=== PATIENT | female | born 1940 | race Two or more races ===

== ENCOUNTER 2019-07-20 14:13 | Outpatient (CLI) | payer OTHER ==
[~2019-07-20 14:13] MED LIST: CALTRATE 600+D1 EAC1; CITALOPRAM HBR10 MG PO; CLONAZEPAM0.5 MG; COZAAR25 MG; SYNTHROID50 MCG PO; TOPROL XL25 M1
== END 2019-07-20 14:28 | disposition home or self-care (01) ==
LOC: RAD 14:13
DX: M17.12 Unilateral primary osteoarthritis, left knee (principal)

== ENCOUNTER 2020-09-04 14:53 | Outpatient (CLI) | payer OTHER | END 2020-09-04 15:59 | disposition home or self-care (01) | LOC: OFIC 805 14:53 | PROVIDERS: ATTEND Otolaryngology Otology & Neurotology | DX: J30.89 Other allergic rhinitis (principal); R09.81 Nasal congestion; H61.23 Impacted cerumen, bilateral ==

== ENCOUNTER 2020-12-21 09:52 | Outpatient (CLI) | payer OTHER | END 2020-12-21 10:04 | disposition home or self-care (01) | LOC: TOM 09:52 | PROVIDERS: ATTEND Internal Medicine Gastroenterology | DX: K57.30 Diverticulosis of large intestine without perforation or abscess without bleeding (principal); R13.14 Dysphagia, pharyngoesophageal phase; K58.0 Irritable bowel syndrome with diarrhea; F06.31 Mood disorder due to known physiological condition with depressive features; Z12.11 Encounter for screening for malignant neoplasm of colon ==

== ENCOUNTER 2022-10-20 09:47 | Emergency (ER) | payer OTHER ==
[~2022-10-20] VITALS: Ht 162.6 cm; Wt 59.0 kg
[2022-10-20] MEDS ORDERED: XOPENEX0.63 MG/3 IH (12:12)
[2022-10-20] MEDS ORDERED: ZITHROMAX500 MG PO (12:12)
[2022-10-20] MEDS ORDERED: TUSNEL LIQUID178 ML PO (12:12)
[2022-10-20] MEDS ORDERED: PAXLOVID 300-11 EACH PO (12:20)
[2022-10-20] MEDS ORDERED: MEDROLPACK PO (12:21)
== END 2022-10-20 12:36 | disposition home or self-care (01) ==
LOC: ER 09:47
DX: U07.1 COVID-19 (principal); R05.9 Cough, unspecified

== ENCOUNTER 2022-10-20 17:08 | Emergency (ER) | payer OTHER ==
[~2022-10-20] VITALS: Ht 152.4 cm; Wt 59.0 kg
[~2022-10-20 17:08] MED LIST changes: +MEDROLPACK PO; +PAXLOVID 300-11 EACH PO; +TUSNEL LIQUID178 ML PO; +XOPENEX0.63 MG/3 IH; +ZITHROMAX500 MG PO
== END 2022-10-20 21:17 | disposition home or self-care (01) ==
LOC: ER 17:08
DX: U07.1 COVID-19 (principal); I10 Essential (primary) hypertension

== ENCOUNTER 2023-01-20 14:00 | Outpatient (CLI) | payer OTHER | END 2023-01-20 14:08 | disposition home or self-care (01) | LOC: RAD 14:00 | DX: M79.671 Pain in right foot (principal) ==

== ENCOUNTER 2023-01-20 15:44 | Outpatient (CLI) | payer OTHER | END 2023-01-20 15:46 | disposition home or self-care (01) | LOC: LAB 15:44 | PROVIDERS: ATTEND Internal Medicine Pulmonary Disease | DX: B01.9 Varicella without complication (principal) ==

== ENCOUNTER 2023-02-06 08:29 | Outpatient (CLI) | payer OTHER | END 2023-02-06 08:33 | disposition home or self-care (01) | LOC: RX STUDY 08:29 | PROVIDERS: ATTEND Internal Medicine Cardiovascular Disease | DX: R13.10 Dysphagia, unspecified (principal) ==

== ENCOUNTER 2024-01-21 00:42 | Emergency (ER) | payer OTHER ==
[~2024-01-21] VITALS: Ht 162.6 cm; Wt 59.0 kg
[2024-01-21] MEDS ORDERED: ESCITALOPRAM OX10 MG PO (00:57)
[2024-01-21] MEDS ORDERED: ATORVASTATIN CA20 MG PO (00:57)
== END 2024-01-21 02:33 ==
LOC: ER 00:43
DX: I10 Essential (primary) hypertension (principal)